=== PATIENT | male | born 1965 ===

== ENCOUNTER 2019-05-12 12:44 | Outpatient (CLI) | payer OTHER | END 2019-05-12 12:46 | disposition home or self-care (01) | LOC: RAD 12:44 | DX: M54.2 Cervicalgia (principal) ==

== ENCOUNTER 2019-05-13 10:39 | Outpatient (CLI) | payer OTHER | END 2019-05-13 11:12 | disposition home or self-care (01) | LOC: SONOGRAMA 10:39 | DX: R22.1 Localized swelling, mass and lump, neck (principal) ==

== ENCOUNTER 2019-05-25 12:49 | Outpatient (CLI) | payer OTHER ==
[~2019-05-25] VITALS: Ht 182.9 cm; Wt 87.5 kg
== END 2019-05-25 16:30 | disposition home or self-care (01) ==
LOC: OFIC 805 12:49
DX: H93.11 Tinnitus, right ear (principal); H91.8X3 Other specified hearing loss, bilateral

== ENCOUNTER 2019-07-18 10:36 | Outpatient (CLI) | payer OTHER | END 2019-07-18 14:43 | disposition home or self-care (01) | LOC: OFIC 805 10:36 | DX: H93.11 Tinnitus, right ear (principal); H90.3 Sensorineural hearing loss, bilateral; H90.42 Sensorineural hearing loss, unilateral, left ear, with unrestricted hearing on the contralateral side ==